=== PATIENT | male | born 1970 | race Caucasian/White ===

== ENCOUNTER 2021-01-26 11:35 | Observation (INO) ==
[2021-01-26] MEDS ORDERED: cefTRIAXone SODIUM 1,000 MG/50 ML BAG IV STA (12:46)
[2021-01-26] MEDS ORDERED: SODIUM CHLORIDE 0.9% 1000ML 1,000 ML IV STA (12:46)
[2021-01-26] MEDS ORDERED: VANCOMYCIN HCL 1,750 MG in SODIUM CHLORIDE 0.9% 500 ML IV ONE (12:46)
[2021-01-26] MEDS ORDERED: VANCOMYCIN CONSULT ACTIVE PRN (12:46)
--- NOTE | 2021-01-26 12:55 | Emergency Department Note ---
Impression & Plan Cellulitis, Laceration of knee, left ED Provider Note EmergencyNAME: NICK FRENCH AGE: 50 SEX: M : 1970 ARRIVES VIA: Walk-In INFORMANT: Patient, ED PROVIDER(S): Akira Jeff DO CHIEF COMPLAINT: Infection HPI: The patient is a 50-year-old male who presented to the emergency department for an evaluation of an infection in his left knee. The patient suffered an injury while he was in a competitive race. The [facility] was [facility]. The patient states that he tripped while running to a [place] and suffered a laceration just below his kneecap. He did come back to our area and was treated. He received sutures and also was placed on Cipro, Augmentin, and Bactrim. He has been compliant with all the antibiotics. He started having pain and swelling over the last 48 hours. He went to see his family doctor today and was referred to the emergency department for infection. The patient states initially there was no significant erythema but now the knee is swollen and also he has been noticing erythema going up the thigh. He notices no fevers. He does have pain with ambulation. The patient denies having any nausea or vomiting. He denies having any other symptoms. Pain is worsened with ambulation as well as bending the knee. ROS: See above HPI for pertinent positives & negatives. A total of 10 systems reviewed and were otherwise negative. PAST MEDICAL HISTORY: GENERAL: Patient is awake alert in no acute distress patient is resting comfortably and showing no signs of anxiety EYES: The conjunctivae are clear. The pupils are round and reactive. EARS, NOSE, MOUTH AND THROAT: The nose is without any evidence of any deformity. Mucous membranes are moist. Tongue is midline. NECK: The neck is nontender and supple. RESPIRATORY: Normal respiratory effort is noted there is no evidence of wheezing rhonchi or rales CARDIOVASCULAR: Regular rate and rhythm noted there no murmurs rubs or gallops normal S1 normal S2. GASTROINTESTINAL: The abdomen is soft. Abdomen is nontender. MUSCULOSKELETAL/EXTREMITIES: There is an effusion as well as erythema overlying the anterior left knee. There is a laceration with sutures in place. There is no dehiscence or drainage. There is significant erythema overlying the knee. The erythema extends into the medial left thigh. There is no posterior tenderness. SKIN: There is no significant pedal edema. NEUROLOGIC: Patient is awake alert and oriented x3. PAST SURGICAL HISTORY: See Below FAMILY HISTORY: See Below SOCIAL HISTORY: See Below HOME MEDICATIONS: See Below ALLERGIES: See Below VITALS: See Below PHYSICAL EXAMINATION: MEDICAL DECISION MAKING: The patient is a 50-year-old male who presented to the emergency department for an evaluation of left knee pain. The patient was seen in our facility recently for a contaminated knee laceration. Today because of significant swelling and erythema around the laceration. I was concerned this could have extended into the joint. Radiographic and laboratory studies were obtained. The patient was treated further with IV antibiotics. The patient was on 3 different broad- spectrum antibiotics as an outpatient. Given his worsening of symptoms I do feel the patient may require inpatient management. I discussed the patient's condition with him. I also [facility] have agreed to evaluate the patient in the emergency department for further management and disposition. He was also found to have a small tear of his meniscus. He was made aware of this. Triage Nursing notes reviewed. Prior medical records reviewed Vital Signs: reviewed and remarkable for no significant abnormalities Differential diagnosis: Cellulitis, abscess, MRSA infection, DVT, necrotizing fasciitis, dermatitis, drug eruption, allergic reaction, as well as other pathologies. ER treatment provided: See below Diagnostics interpreted by me: ECG: none Laboratory studies: As stated above and show below. Imaging studies: See below Consultation(s): I discussed this case with Joie who [facility] They will evaluate the patient in the emergency department. Past Med/Surg History Medical History History of drainage of abscess History of MRSA infection No significant past medical history Surgical History H/O inguinal hernia repair History of tonsillectomy and adenoidectomy Family History Other Cancer Coronary heart disease Hypertension Stroke Social History Smoking Status: Never smoker Second Hand Exposure: Yes; Do You Dip or Chew Tobacco: No; Hx Alcohol Use: No Hx Substance Use: No Preferred Language: Swiss Communication Ability: Effective Punchboard Assembler Required: No Beliefs That Will Affect Care: None marital status: Current Living Situation: Spouse current occupational status: employed Other Information That Helps Us Care for You: No Feels Safe at Home: Yes Safety Concerns: Feels Safe At This Time Assistive Devices: Glasses Allergies Allergies Allergy/AdvReac Type Severity Reaction Status Date / Time No Known Allergies Allergy Unknown Verified 01/26/21 14:51 Home Meds Home Medications Medication Instructions Recorded Confirmed acetaminophen 325 mg tablet 650 mg PO QID PRN 01/26/21 01/26/21 (Tylenol) ibuprofen 200 mg tablet 400 mg PO Q6H PRN 01/26/21 01/26/21 Previous Rx's Medication Instructions Recorded amoxicillin 875 mg-potassium 1 tab PO BID #14 tab 01/22/21 clavulanate 125 mg tablet (Augmentin) ciprofloxacin HCl 500 mg tablet 500 mg PO BID #14 tab 01/22/21 (Cipro) sulfamethoxazole 800 160 mg PO Q12H #14 tab 01/22/21 mg-trimethoprim 160 mg tablet (Bactrim DS) Results & Data (ED) Vital Signs Vital Signs - 24 hr 01/26/21 11:40 01/26/21 15:00 01/26/21 17:21 Temperature 36.6 C Temperature Source Temporal Artery Scan Pulse Rate 76 Pulse Rate [Apical] 78 65 Respiratory Rate 18 20 18 Respiratory Effort / Characteristics Non-Labored Spontaneous Respiratory Depth Normal Respiratory Pattern Regular Blood Pressure 149/94 H Blood Pressure [Left Arm] 147/75 H 141/80 H Blood Pressure Mean 112 Blood Pressure Mean [Left Arm] 99 100 Blood Pressure Position Sitting Pulse Oximetry 96 98 96 Oxygen Delivery Method Room Air Room Air Room Air Sepsis Recent Fever Within 48 Hours No Sepsis New/Unexplained Change in Mental Status N/A Sepsis Action Taken by Nursing No Action Required Home Medications Current Medication List: was personally reviewed by me Laboratory Data Attestation: I reviewed the patient's lab results. Result diagrams: 01/27/21 08:25 01/27/21 08:25 Lab Results 01/26/21 01/26/21 01/26/21 Range/Units 12:49 12:49 12:49 WBC 7.70 (4.8-10.8) K/uL RBC 5.09 (4.7-6.1) M/uL Hgb 16.8 (14.0-18.0) g/dL Hct 47.4 (42-52) % MCV 93.1 (80-100) fL MCH 33.0 (25-34) pg MCHC 35.4 (32-36) g/dL RDW Std Deviation 41.9 (36.4-46.3) fL RDW Coeff of Phan 12.1 (11.5-14.5) % Plt Count 170 (130-400) K/uL MPV 9.5 (7.4-10.4) fL Immature Gran % (Auto) 0.1 % Neut % (Auto) 78.3 % Lymph % (Auto) 16.4 % Hodgeman % (Auto) 3.4 % Eos % (Auto) 1.4 % Baso % (Auto) 0.4 % Neut # (Auto) 6.03 (1.4-6.5) K/uL Lymph # (Auto) 1.26 (1.2-3.4) K/uL Hodgeman # (Auto) 0.26 (0.11-0.59) K/uL Eos # (Auto) 0.11 (0-0.5) K/uL Baso # (Auto) 0.03 (0-0.2) K/uL Immature Gran # (Auto) 0.01 (0.00-0.02) K/uL ESR (0-20) mm/hr Sodium 136 (136-145) mmol/L Potassium 4.0 (3.5-5.1) mmol/L Chloride 104 (98-107) mmol/L Carbon Dioxide 27 (21-32) mmol/L Anion Gap 5.0 (3-11) BUN 11 (7-18) mg/dl Creatinine 1.09 (0.6-1.4) mg/dl Est Cr Clr Drug Dosing 89.6 ml/min Est GFR ( Amer) 90.0 ml/min Est GFR (Non-Af Amer) 77.6 ml/min BUN/Creatinine Ratio 10.5 (10-20) Glucose 102 H (70-99) mg/dl Calcium 9.6 (8.5-10.1) mg/dl Total Bilirubin 0.6 (0.2-1) mg/dl AST 15 (15-37) U/L ALT 25 (12-78) U/L Alkaline Phosphatase 87 (45-117) U/L C-Reactive Protein 0.67 H (0-0.29) mg/dl Total Protein 8.5 H (6.4-8.2) gm/dl Albumin 4.4 (3.4-5.0) gm/dl Globulin 4.1 H (2.5-4.0) gm/dl Albumin/Globulin Ratio 1.1 (0.9-2) Procalcitonin (0-0.5) ng/ml COVID-19 Eval Order SARS-CoV-2 (PCR) (Negative) 01/26/21 01/26/21 01/26/21 Range/Units 12:49 12:49 17:22 WBC (4.8-10.8) K/uL RBC (4.7-6.1) M/uL Hgb (14.0-18.0) g/dL Hct (42-52) % MCV (80-100) fL MCH (25-34) pg MCHC (32-36) g/dL RDW Std Deviation (36.4-46.3) fL RDW Coeff of Phan (11.5-14.5) % Plt Count (130-400) K/uL MPV (7.4-10.4) fL Immature Gran % (Auto) % Neut % (Auto) % Lymph % (Auto) % Hodgeman % (Auto) % Eos % (Auto) % Baso % (Auto) % Neut # (Auto) (1.4-6.5) K/uL Lymph # (Auto) (1.2-3.4) K/uL Hodgeman # (Auto) (0.11-0.59) K/uL Eos # (Auto) (0-0.5) K/uL Baso # (Auto) (0-0.2) K/uL Immature Gran # (Auto) (0.00-0.02) K/uL ESR 18 (0-20) mm/hr Sodium (136-145) mmol/L Potassium (3.5-5.1) mmol/L Chloride (98-107) mmol/L Carbon Dioxide (21-32) mmol/L Anion Gap (3-11) BUN (7-18) mg/dl Creatinine (0.6-1.4) mg/dl Est Cr Clr Drug Dosing ml/min Est GFR ( Amer) ml/min Est GFR (Non-Af Amer) ml/min BUN/Creatinine Ratio (10-20) Glucose (70-99) mg/dl Calcium (8.5-10.1) mg/dl Total Bilirubin (0.2-1) mg/dl AST (15-37) U/L ALT (12-78) U/L Alkaline Phosphatase (45-117) U/L C-Reactive Protein (0-0.29) mg/dl Total Protein (6.4-8.2) gm/dl Albumin (3.4-5.0) gm/dl Globulin (2.5-4.0) gm/dl Albumin/Globulin Ratio (0.9-2) Procalcitonin < 0.05 (0-0.5) ng/ml COVID-19 Eval Order Covid19 at [facility] SARS-CoV-2 (PCR) (Negative) 01/26/21 Range/Units 17:22 WBC (4.8-10.8) K/uL RBC (4.7-6.1) M/uL Hgb (14.0-18.0) g/dL Hct (42-52) % MCV (80-100) fL MCH (25-34) pg MCHC (32-36) g/dL RDW Std Deviation (36.4-46.3) fL RDW Coeff of Phan (11.5-14.5) % Plt Count (130-400) K/uL MPV (7.4-10.4) fL Immature Gran % (Auto) % Neut % (Auto) % Lymph % (Auto) % Hodgeman % (Auto) % Eos % (Auto) % Baso % (Auto) % Neut # (Auto) (1.4-6.5) K/uL Lymph # (Auto) (1.2-3.4) K/uL Hodgeman # (Auto) (0.11-0.59) K/uL Eos # (Auto) (0-0.5) K/uL Baso # (Auto) (0-0.2) K/uL Immature Gran # (Auto) (0.00-0.02) K/uL ESR (0-20) mm/hr Sodium (136-145) mmol/L Potassium (3.5-5.1) mmol/L Chloride (98-107) mmol/L Carbon Dioxide (21-32) mmol/L Anion Gap (3-11) BUN (7-18) mg/dl Creatinine (0.6-1.4) mg/dl Est Cr Clr Drug Dosing ml/min Est GFR ( Amer) ml/min Est GFR (Non-Af Amer) ml/min BUN/Creatinine Ratio (10-20) Glucose (70-99) mg/dl Calcium (8.5-10.1) mg/dl Total Bilirubin (0.2-1) mg/dl AST (15-37) U/L ALT (12-78) U/L Alkaline Phosphatase (45-117) U/L C-Reactive Protein (0-0.29) mg/dl Total Protein (6.4-8.2) gm/dl Albumin (3.4-5.0) gm/dl Globulin (2.5-4.0) gm/dl Albumin/Globulin Ratio (0.9-2) Procalcitonin (0-0.5) ng/ml COVID-19 Eval Order SARS-CoV-2 (PCR) NEGATIVE (Negative) Administered Medications Acetaminophen (Acetaminophen 325 Mg Tab) 650 mg PO Q4H PRN PRN Reason: Pain or Fever Stop: 02/25/21 20:55 Last Admin: 01/27/21 06:08 Dose: 650 mg Documented by: [id number] Admin: 01/26/21 23:05 Dose: 650 mg Documented by: [id number] Vancomycin HCl 1,000 mg/ (Sodium Chloride) 270 mls @ 200 mls/hr IV Q8H EMILIE Stop: 02/02/21 21:59 Last Infusion: 01/27/21 05:45 Dose: 0 mls/hr Documented by: [id number] Admin: 01/27/21 04:48 Dose: 200 mls/hr Documented by: [id number] Infusion: 01/27/21 00:34 Dose: 0 mls/hr Documented by: [id number] Admin: 01/26/21 23:05 Dose: 200 mls/hr Documented by: [id number] Piperacillin Sod/Tazobactam (Sod 3.375 gm/ Dextrose) 115 mls @ 28.75 mls/hr IV Q8H EMILIE; Protocol Stop: 02/03/21 03:59 Last Infusion: 01/27/21 09:19 Dose: 0 mls/hr Documented by: [id number] Infusion: 01/27/21 05:46 Dose: 28.8 mls/hr Documented by: [id number] Infusion: 01/27/21 04:50 Dose: 0 mls/hr Documented by: [id number] Admin: 01/27/21 04:48 Dose: 28.8 mls/hr Documented by: [id number] Discontinued Medications Gadobutrol (Gadobutrol 65ml Vial) 9 ml IV ONCE ONE Stop: 01/26/21 16:24 Last Admin: 01/26/21 16:24 Dose: 9 ml Documented by: [id number] Sodium Chloride (Nss 1000ml) 1,000 mls @ 125 mls/hr IV .Q8H STA Stop: 01/26/21 20:45 Last Infusion: 01/26/21 22:02 Dose: 0 mls/hr Documented by: [id number] Admin: 01/26/21 13:01 Dose: 125 mls/hr Documented by: [id number] Ceftriaxone Sodium (Rocephin) 1,000 mg in 50 mls @ 100 mls/hr IV NOW STA Stop: 01/26/21 13:15 Last Infusion: 01/26/21 16:35 Dose: 0 mls/hr Documented by: [id number] Admin: 01/26/21 13:03 Dose: 100 mls/hr Documented by: [id number] Vancomycin HCl 1,750 mg/ (Sodium Chloride) 535 mls @ 200 mls/hr IV NOW ONE Stop: 01/26/21 15:26 Last Infusion: 01/26/21 16:35 Dose: 0 mls/hr Documented by: [id number] Admin: 01/26/21 13:25 Dose: 200 mls/hr Documented by: [id number] Sodium Chloride (Nss 1000ml) 1,000 mls @ 125 mls/hr IV .Q8H EMILIE Stop: 01/27/21 04:55 Last Infusion: 01/27/21 05:50 Dose: 0 mls/hr Documented by: [id number] Infusion: 01/27/21 04:50 Dose: 0 mls/hr Documented by: [id number] Admin: 01/26/21 21:53 Dose: 125 mls/hr Documented by: [id number] Piperacillin Sod/Tazobactam (Sod 3.375 gm/ Dextrose) 115 mls @ 230 mls/hr IV NOW ONE; Protocol Stop: 01/26/21 21:59 Last Infusion: 01/26/21 22:30 Dose: 0 mls/hr Documented by: [id number] Admin: 01/26/21 21:53 Dose: 230 mls/hr Documented by: [id number] Miscellaneous Information (Consult Pharmacy) 1 ea N/A NOW STA Stop: 01/26/21 18:23 Last Admin: 01/26/21 21:53 Dose: Not Given Documented by: [id number] Imaging Data Radiologist's Impression: Knee MRI 01/26/21 12:46 MR knee LT wo/w con CLINICAL HISTORY: infection COMPARISON STUDY: TECHNIQUE: MRI of the left knee was performed utilizing proton density T1, and T2 weighted sequences in the axial, sagittal, and coronal planes FINDINGS: Menisci: Lateral meniscus is intact. Mild increase in intrasubstance signal within posterior medial meniscus with extension to the meniscal surface likely representing meniscal tear.. Anterior medial meniscus is intact. Ligaments: The anterior and posterior cruciate ligaments are intact. The medial and lateral collateral ligaments are normal in appearance. Extensor mechanism: The extensor mechanism is intact. Hoffa's fat pad is normal in appearance. Articular cartilage and bone: The articular cartilage is intact, and no bone marrow edema is seen. There is 1.8 x 0.6 cm elongated fluid signal lesion within distal femoral metaphysis which might represent cyst. Few sclerotic lesions are seen within lateral femoral condyle. Joint effusion: Minimal knee joint and suprapatellar effusion. Soft tissues: Diffuse edema of soft tissue overlying anterior aspect of the knee. No evidence of abnormal enhancement to suggest osteomyelitis. IMPRESSION: 1. Tear of the posterior medial meniscus. 2. No evidence of abnormal enhancement to suggest osteomyelitis. 3. No significant bone marrow edema is seen. 4. Soft tissue edema overlying the anterior compartment of the knee is seen. 5. The rest of findings as above. ACT 112: Negative or not required by law. The above report was generated using voice recognition software. It may contain grammatical, syntax or spelling errors. Electronically signed by: Cheri Najera DO 01/26/2021 5:05 PM Discharge Plan Visit Data Chief Complaint: Infection Stated Complaint: LEFT KNEE INFECTION ED Provider: Akira Jeff Discharge Problem: Cellulitis, Laceration of knee, left Patient Disposition: Admitted As Inpatient Discharge Instructions Interventions: ED Discharge Assessment Last Done: 01/26/21 19:49 Discharge Problem: Cellulitis Qualifiers: Site of cellulitis: extremity Site of cellulitis of extremity: lower extremity Laterality: left Qualified Code(s): L03.116 - Cellulitis of left lower limb Laceration of knee, left Qualifiers: Encounter type: initial encounter Qualified Code(s): S81.012A - Laceration without foreign body, left knee, initial encounter
[2021-01-26 13:07] LABS: Basophils # (auto) 0.03 K/uL (0-0.2); Basophils % (auto) 0.4 %; Eosinophils # (auto) 0.11 K/uL (0-0.5); Eosinophils % (auto) 1.4 %; Hematocrit (blood only) 47.4 % (42-52); Hemoglobin 16.8 g/dL (14.0-18.0); Immature Granulocytes # (auto) 0.01 K/uL (0.00-0.02); Immature Granulocytes % (auto) 0.1 %; Lymphocytes # (auto) 1.26 K/uL (1.2-3.4); Lymphocytes % (auto) 16.4 %; Mean Corpuscular Hgb Conc 35.4 g/dL (32-36); Mean Corpuscular Volume 93.1 fL (80-100); Mean Platelet Volume 9.5 fL (7.4-10.4); Monocytes # (auto) 0.26 K/uL (0.11-0.59); Monocytes % (auto) 3.4 %; Neutrophils # (auto) 6.03 K/uL (1.4-6.5); Neutrophils % (auto) 78.3 %; Platelet Count 170 K/uL (130-400); RDW Coefficient of Variation 12.1 % (11.5-14.5); RDW Standard Deviation 41.9 fL (36.4-46.3); Red Blood Count 5.09 M/uL (4.7-6.1)
[2021-01-26 13:27] LABS: Albumin Level 4.4 gm/dl (3.4-5.0); BUN Creatinine Ratio 10.5 (10-20); Calcium 9.6 mg/dl (8.5-10.1); Creatinine Clr Calc Pharmacy 89.6 ml/min; Est GFR (Non-African American) 77.6 ml/min
[2021-01-26 13:29] LABS: Albumin Globulin Ratio 1.1 (0.9-2); Bilirubin,Total 0.6 mg/dl (0.2-1); Globulin 4.1 gm/dl (2.5-4.0); Total Protein 8.5 gm/dl (6.4-8.2)
[2021-01-26] MEDS ORDERED: GADOBUTROL 65ML VIAL IV ONE (16:23)
--- NOTE | 2021-01-26 17:06 | Magnetic Resonance Report ---
MR knee LT wo/w con CLINICAL HISTORY: infection COMPARISON STUDY: TECHNIQUE: MRI of the left knee was performed utilizing proton density T1, and T2 weighted sequences in the axial, sagittal, and coronal planes FINDINGS: Menisci: Lateral meniscus is intact. Mild increase in intrasubstance signal within posterior medial m eniscus with extension to the meniscal surface likely representing meniscal tear.. Anterior medial me niscus is intact. Ligaments: The anterior and posterior cruciate ligaments are intact. The medial and lateral collatera l ligaments are normal in appearance. Extensor mechanism: The extensor mechanism is intact. Hoffa's fat pad is normal in appearance. Articular cartilage and bone: The articular cartilage is intact, and no bone marrow edema is seen. There is 1.8 x 0.6 cm elongated fluid signal lesion within distal femoral metaphysis which might repr esent cyst. Few sclerotic lesions are seen within lateral femoral condyle. Joint effusion: Minimal knee joint and suprapatellar effusion. Soft tissues: Diffuse edema of soft tissue overlying anterior aspect of the knee. No evidence of abn ormal enhancement to suggest osteomyelitis. IMPRESSION: 1. Tear of the posterior medial meniscus. 2. No evidence of abnormal enhancement to suggest osteomyelitis. 3. No significant bone marrow edema is seen. 4. Soft tissue edema overlying the anterior compartment of the knee is seen. 5. The rest of findings as above. ACT 112: Negative or not required by law. The above report was generated using voice recognition software. It may contain grammatical, syntax o r spelling errors. Electronically signed by: Cheri Najera DO 01/26/2021 5:05 PM
[2021-01-26] MEDS ORDERED: CONSULT PHARMACY STA (18:22)
--- NOTE | 2021-01-26 20:18 | History & Physical Report ---
Date of Service January 26, 2021 Assessment & Plan (1) Cellulitis of knee, left: (2) Laceration of knee, left: Plan: Pt is 50 y/o M with h/o MRSA presented to ER with c/o left knee redness x several days. On 01/22/21 laceration and repair and started on Augmentin, Cipro, & Bactrim. Denies fever/chills. In ER pt afebrile, vitals stable. No leukocytosis. Lactate WNL In ER given Rocephin, vancomycin. MRI knee: Tear of the posterior medial meniscus. No evidence of abnormal enhancement to suggest osteomyelitis. No significant bone marrow edema is seen. Soft tissue edema overlying the anterior compartment of the knee is seen. -Blood cultures pending -Zosyn, vancomycin -IVF -Ortho consult -CBC, BMP in a.m. DVT Prophylaxis -SCDs Full Code as per discussion with pt Follows with Dr Mitchell for routine care Pt was seen and care coordinated with Dr Cagle. See addendum History of Present Illness Chief Complaint: Left knee redness Primary Care Provider: Jennifer Mitchell, Pt is 50 y/o M with h/o MRSA presented to ER with c/o left knee redness. On 01/22/21 pt was running obstacle course when fell onto muddy stream onto left knee causing laceration. He reports area was cleansed and bandaged and then was seen at [facility] ER and had laceration sutured. He was placed on Augmentin, Cipro, & Bactrim. Over past couple of days developed edema and erythema to knee with edema extending up medial thigh. Denies discharge from area. Denies fever/chills, diaphoresis, N/V/D/C, PATE, dizziness, syncope, vision changes, neck pain, CP, SOB, orthopnea, palpitations, cough, sore throat, choking, otalgia, rhinorrhea, abdominal pain, paresthesias, weakness, extremity weakness, other extremity edema, rashes, urinary symptoms. In ER pt afebrile, vitals stable. Was given Rocephin, vancomycin. MRI knee: Tear of the posterior medial meniscus. No evidence of abnormal enhancement to suggest osteomyelitis. No significant bone marrow edema is seen. Soft tissue edema overlying the anterior compartment of the knee is seen. Patient being admitted for further evaluation and treatment Allergies Allergy/AdvReac Type Severity Reaction Status Date / Time No Known Allergies Allergy Unknown Verified 01/26/21 14:51 Home Medications Medication Instructions Recorded Confirmed Type amoxicillin 875 mg-potassium 1 tab PO BID #14 tab 01/22/21 01/26/21 Rx clavulanate 125 mg tablet (Augmentin) ciprofloxacin HCl 500 mg tablet 500 mg PO BID #14 tab 01/22/21 01/26/21 Rx (Cipro) sulfamethoxazole 800 160 mg PO Q12H #14 tab 01/22/21 01/26/21 Rx mg-trimethoprim 160 mg tablet (Bactrim DS) acetaminophen 325 mg tablet 650 mg PO QID PRN 01/26/21 01/26/21 History (Tylenol) ibuprofen 200 mg tablet 400 mg PO Q6H PRN 01/26/21 01/26/21 History Past Med/Surg History Medical History (Updated 01/26/21 @ 20:19 by Lawanda Marrero PA-C) History of drainage of abscess History of MRSA infection No significant past medical history Surgical History (Updated 01/26/21 @ 20:19 by Lawanda Marrero PA-C) H/O inguinal hernia repair History of tonsillectomy and adenoidectomy Family History (Updated 01/26/21 @ 20:14 by Lawanda Marrero PA-C) Other Cancer Coronary heart disease Hypertension Stroke Social History (Updated 01/26/21 @ 20:14 by Lawanda Marrero PA-C) Smoking Status: Never smoker Hx Alcohol Use: Yes Alcohol Intake Frequency: Monthly or Less Hx Substance Use: No Preferred Language: Syriac marital status: Current Living Situation: Spouse current occupational status: employed Feels Safe at Home: Yes Review of Systems Review of Systems: All systems reviewed & are unremarkable except as noted in HPI & below Physical Exam Physical Exam: General: no distress, WDWN Head: normocephalic, atraumatic Eyes: conjunctiva non-injected, anicteric ENT: normal inspection external ears, nose, mucous membranes moist Neck: supple, trachea midline Lungs: clear, no respiratory distress, no wheezing/rhonchi/rales CV: RRR, no murmur Abd: normal BS, soft, non-tender Ext: no cyanosis, no calf tenderness; LLE: anterior knee with laceration closed with 7 sutures without purulent drainage, no fluctuance palpated over laceration site. Anterior knee with edema, warmth, erythema. erythema extends proximal medial thigh and measures 30 cm in length. Area was marked with skin marker, distal pulses palpable. Limited flexion of left knee, patient has been using knee immobilizer Neuro: A&O x 3, no focal deficits noted, normal affect Skin: warm, dry, left lower extremity as above Results & Data Results & Data ([facility]) Vital Signs (Past 12 Hours) Vital Signs Temp Pulse Pulse Resp BP BP Pulse Ox 01/26/21 19:49 65 16 135/70 97 01/26/21 18:30 60 18 138/75 98 01/26/21 17:21 65 18 141/80 H 96 01/26/21 15:00 78 20 147/75 H 98 01/26/21 11:40 36.6 C 76 18 149/94 H 96 Laboratory Results Short CBC 01/26/21 Range/Units 12:49 WBC 7.70 (4.8-10.8) K/uL Hgb 16.8 (14.0-18.0) g/dL Hct 47.4 (42-52) % Plt Count 170 (130-400) K/uL BMP 01/26/21 12:49 Sodium 136 Potassium 4.0 Chloride 104 Carbon Dioxide 27 BUN 11 Creatinine 1.09 Glucose 102 H Calcium 9.6 Liver Function 01/26/21 Range/Units 12:49 Total Bilirubin 0.6 (0.2-1) mg/dl AST 15 (15-37) U/L ALT 25 (12-78) U/L Alkaline Phosphatase 87 (45-117) U/L Albumin 4.4 (3.4-5.0) gm/dl Diagnostic Findings Knee MRI 01/26/21 12:46 MR knee LT wo/w con CLINICAL HISTORY: infection COMPARISON STUDY: TECHNIQUE: MRI of the left knee was performed utilizing proton density T1, and T2 weighted sequences in the axial, sagittal, and coronal planes FINDINGS: Menisci: Lateral meniscus is intact. Mild increase in intrasubstance signal within posterior medial meniscus with extension to the meniscal surface likely representing meniscal tear.. Anterior medial meniscus is intact. Ligaments: The anterior and posterior cruciate ligaments are intact. The medial and lateral collateral ligaments are normal in appearance. Extensor mechanism: The extensor mechanism is intact. Hoffa's fat pad is normal in appearance. Articular cartilage and bone: The articular cartilage is intact, and no bone marrow edema is seen. There is 1.8 x 0.6 cm elongated fluid signal lesion within distal femoral metaphysis which might represent cyst. Few sclerotic lesions are seen within lateral femoral condyle. Joint effusion: Minimal knee joint and suprapatellar effusion. Soft tissues: Diffuse edema of soft tissue overlying anterior aspect of the knee. No evidence of abnormal enhancement to suggest osteomyelitis. IMPRESSION: 1. Tear of the posterior medial meniscus. 2. No evidence of abnormal enhancement to suggest osteomyelitis. 3. No significant bone marrow edema is seen. 4. Soft tissue edema overlying the anterior compartment of the knee is seen. 5. The rest of findings as above. ACT 112: Negative or not required by law. The above report was generated using voice recognition software. It may contain grammatical, syntax or spelling errors. Electronically signed by: Cheri Najera DO 01/26/2021 5:05 PM Code Status & VTE Plan VTE Prophylaxis Plan VTE Prophylaxis will be ordered: Yes Supervising Physician Co-Signing Physician Notes Patient is a 50-year-old male with history of MRSA and no other significant past medical history presents with history of left knee redness, swelling, tenderness after sustaining left knee laceration resulting in sutures 4 days ago secondary to a fall. Patient was prescribed multiple oral antibiotics which did not help. He denies any fever. He states having left knee discomfort with ambulation, weightbearing. He denies any chest pain, shortness of breath, dizziness. Please review HPI for complete details of presentation. MRI of the knee suggestive of posterior medial meniscal tear. No signs of osteomyelitis noted. Blood work within normal limits. On exam patient is well-built and nourished, no apparent distress, normocephalic atraumatic, lungs are clear to auscultation, normal breath sounds, S1-S2, no murmur, no pedal edema, abdomen soft, nontender, normal bowel sounds, left knee+ sutures, erythema extending up to mid thigh, mild tenderness on palpation, minimal swelling noted. Alert, awake, oriented, grossly no focal deficits. Patient is admitted for management of left knee cellulitis, meniscal tear. Agree with starting broad-spectrum antibiotics IV, vancomycin, Zosyn. Blood cultures obtained. Will consult orthopedics for input on meniscal tear and possible rule out knee infection. I personally reviewed the record. Patient is interviewed and examined at bedside. Patient's care is coordinated with Lawanda Marrero PA-C. Please refer to the documentation above for details of patient's presentation and for discussion of other issues. (1) Laceration of knee, left Encounter type: initial encounter Qualified Code(s): S81.012A - Laceration without foreign body, left knee, initial encounter
[2021-01-26] MEDS ORDERED: PIPERACILL/TAZOBAC CONSULT ACTIVE PRN (20:56)
[2021-01-26] MEDS ORDERED: SODIUM CHLORIDE 0.9% 1000ML 1,000 ML IV SCH (20:56)
[2021-01-26] MEDS ORDERED: ONDANSETRON INJ 2 MG/ML 2 ML VIAL IV PRN (20:56)
[2021-01-26] MEDS ORDERED: POLYETHYLENE (MIRALAX) 17 GM PACK PO PRN (20:56)
[2021-01-26] MEDS ORDERED: PIPERACILLIN/TAZOBACTAM 3.375 GM in DEXTROSE 5% 100 ML IV ONE (21:30)
[2021-01-26] MEDS: ACETAMINOPHEN 325 MG TAB PO PRN (23:05)
[2021-01-26] MEDS: VANCOMYCIN HCL 1,000 MG in SODIUM CHLORIDE 0.9% 250 ML IV SCH (23:05)
[2021-01-27] MEDS: PIPERACILLIN/TAZOBACTAM 3.375 GM in DEXTROSE 5% 100 ML IV SCH ×3 (04:48→21:00)
[2021-01-27] MEDS: VANCOMYCIN HCL 1,000 MG in SODIUM CHLORIDE 0.9% 250 ML IV SCH ×3 (04:48→21:00)
[2021-01-27] MEDS ORDERED: VANCOMYCIN TROUGH ONE (05:30)
[2021-01-27] MEDS: ACETAMINOPHEN 325 MG TAB PO PRN ×4 (06:08→22:02)
[2021-01-27 08:46] LABS: Hematocrit (blood only) 45.1 % (42-52); Hemoglobin 15.5 g/dL (14.0-18.0); Mean Corpuscular Hemoglobin 32.4 pg (25-34); Mean Corpuscular Hgb Conc 34.4 g/dL (32-36); Mean Corpuscular Volume 94.2 fL (80-100); Mean Platelet Volume 9.4 fL (7.4-10.4); Platelet Count 140 K/uL (130-400); RDW Standard Deviation 41.6 fL (36.4-46.3); Red Blood Count 4.79 M/uL (4.7-6.1); White Blood Count 5.48 K/uL (4.8-10.8)
[2021-01-27 09:15] LABS: BUN Creatinine Ratio 11.1 (10-20); Calcium 8.8 mg/dl (8.5-10.1); Creatinine Clr Calc Pharmacy 101.7 ml/min; Est GFR (African American) 104.9 ml/min; Est GFR (Non-African American) 90.5 ml/min; Potassium 4.4 mmol/L (3.5-5.1)
--- NOTE | 2021-01-27 11:03 | Orthopedic Consultation ---
Date of Consultation January 27, 2021 Assessment & Plan (1) Cellulitis of knee, left: X-rays reviewed with Dr. Jacobs. Patient also examined by Dr. Jacobs. At this point, patient has a general cellulitis secondary to his laceration. No areas identified that would need drained. No surgery needed at this time. Continue current IV antibiotics. Patient may be weightbearing as tolerated on the left lower extremity. Would continue immobilizer for another short period of time when ambulating and then begin gentle range of motion over the next several days. Thank you for this consult. History of Present Illness Reason for Consultation: Left knee cellulitis Attending Physician: Sincere Cagle MD History of Present Illness Patient is a 50-year-old white male who was running an outdoor [employer] obstacle course on 01/22/2021. At 1 point during the race, he ended up falling into a stream bed that was exceedingly muddy. He ended up getting a laceration on his knee. He was treated by the pbx operator at that time. He states the wound was cleansed and then dressed. He was sent to the emergency room where at that point he was seen and the wound was taken care of. It was sutured and he was placed on several antibiotics for possible wound infection coverage. Over the next several days, he began having some increased erythema around the incision that slowly spread up and down the leg. Went and saw one of his practitioners who directed him to the emergency room. [facility]. We have been consulted to see him for his knee cellulitis. Currently the patient states that he is feeling better. He is noted that the erythema has gotten better along with less swelling. He denies any severe pain at this time. He denies any previous chills, fevers, nausea or vomiting prior to being admitted. Allergies Allergy/AdvReac Type Severity Reaction Status Date / Time No Known Allergies Allergy Unknown Verified 01/26/21 14:51 Home Medications Medication Instructions Recorded Confirmed Type amoxicillin 875 mg-potassium 1 tab PO BID #14 tab 01/22/21 01/26/21 Rx clavulanate 125 mg tablet (Augmentin) ciprofloxacin HCl 500 mg tablet 500 mg PO BID #14 tab 01/22/21 01/26/21 Rx (Cipro) sulfamethoxazole 800 160 mg PO Q12H #14 tab 01/22/21 01/26/21 Rx mg-trimethoprim 160 mg tablet (Bactrim DS) acetaminophen 325 mg tablet 650 mg PO QID PRN 01/26/21 01/26/21 History (Tylenol) ibuprofen 200 mg tablet 400 mg PO Q6H PRN 01/26/21 01/26/21 History Patient History Medical History History of drainage of abscess History of MRSA infection No significant past medical history Surgical History H/O inguinal hernia repair History of tonsillectomy and adenoidectomy Family History Other Cancer Coronary heart disease Hypertension Stroke Social History Smoking Status: Never smoker Second Hand Exposure: Yes; Do You Dip or Chew Tobacco: No; Hx Alcohol Use: No Hx Substance Use: No Preferred Language: Faroese Communication Ability: Effective Underwriting Clerk Required: No Beliefs That Will Affect Care: None marital status: Current Living Situation: Spouse current occupational status: employed Other Information That Helps Us Care for You: No Feels Safe at Home: Yes Safety Concerns: Feels Safe At This Time Assistive Devices: Glasses Review of Systems Review of Systems: All systems reviewed & are unremarkable except as noted in HPI & below Physical Exam Physical Exam: Patient is a well-developed, well-nourished. white male; alert and oriented x3; no acute distress, pleasant and cooperative. On examination of his left lower extremity, he has a large area that had a border drawn around the leg where his erythema had extended proximally and distally. There is a well approximated wound with sutures over the patella. Erythema still exist over the patellar area but he has noticeable resolution of his erythema that had traveled proximally and distally. He initially was told to limit his range of motion secondary to his left knee incision to help it heal. He has no overt drainage coming from the wound itself. I cannot appreciate any palpable fluid collections in the prepatellar bursa or around the patella itself. He has one area that is tender over the medial aspect of the patella/medial retinaculum. Palpation of the skin itself does not cause him any discomfort. I can take him through gentle range of motion of the left knee from 0 degrees extension to about 30 degrees of flexion until he starts having pain and pulling on his incision. Calves are soft nontender. He has no pain posteriorly of the thigh. Even the areas that have a little bit of a residual erythema left on the distal thigh where erythema had been marked is nontender. There is no gross motor or sensory loss seen at this time. Results & Data ([facility]) Vital Signs (Past 12 Hours) Vital Signs Temp Pulse Resp BP Pulse Ox 01/27/21 07:16 36.6 C 62 16 115/71 97 Laboratory Results Laboratory Results WBC 5.48 K/uL (4.8-10.8) 01/27/21 08:25 RBC 4.79 M/uL (4.7-6.1) 01/27/21 08:25 Hgb 15.5 g/dL (14.0-18.0) 01/27/21 08:25 Hct 45.1 % (42-52) 01/27/21 08:25 MCV 94.2 fL (80-100) 01/27/21 08:25 MCH 32.4 pg (25-34) 01/27/21 08:25 MCHC 34.4 g/dL (32-36) 01/27/21 08:25 RDW Std Deviation 41.6 fL (36.4-46.3) 01/27/21 08:25 RDW Coeff of Phan 12.0 % (11.5-14.5) 01/27/21 08:25 Plt Count 140 K/uL (130-400) 01/27/21 08:25 MPV 9.4 fL (7.4-10.4) 01/27/21 08:25 Immature Gran % (Auto) 0.1 % 01/26/21 12:49 Neut % (Auto) 78.3 % 01/26/21 12:49 Lymph % (Auto) 16.4 % 01/26/21 12:49 Surry % (Auto) 3.4 % 01/26/21 12:49 Eos % (Auto) 1.4 % 01/26/21 12:49 Baso % (Auto) 0.4 % 01/26/21 12:49 Neut # (Auto) 6.03 K/uL (1.4-6.5) 01/26/21 12:49 Lymph # (Auto) 1.26 K/uL (1.2-3.4) 01/26/21 12:49 Surry # (Auto) 0.26 K/uL (0.11-0.59) 01/26/21 12:49 Eos # (Auto) 0.11 K/uL (0-0.5) 01/26/21 12:49 Baso # (Auto) 0.03 K/uL (0-0.2) 01/26/21 12:49 Immature Gran # (Auto) 0.01 K/uL (0.00-0.02) 01/26/21 12:49 ESR 18 mm/hr (0-20) 01/26/21 12:49 Sodium 139 mmol/L (136-145) 01/27/21 08:25 Potassium 4.4 mmol/L (3.5-5.1) 01/27/21 08:25 Chloride 110 mmol/L (98-107) H 01/27/21 08:25 Carbon Dioxide 28 mmol/L (21-32) 01/27/21 08:25 Anion Gap 2.0 (3-11) L 01/27/21 08:25 BUN 11 mg/dl (7-18) 01/27/21 08:25 Creatinine 0.96 mg/dl (0.6-1.4) 01/27/21 08:25 Est Cr Clr Drug Dosing 101.7 ml/min 01/27/21 08:25 Est GFR ( Amer) 104.9 ml/min 01/27/21 08:25 Est GFR (Non-Af Amer) 90.5 ml/min 01/27/21 08:25 BUN/Creatinine Ratio 11.1 (10-20) 01/27/21 08:25 Glucose 101 mg/dl (70-99) H 01/27/21 08:25 Lactate 0.9 mmol/L (0.4-2.0) 01/26/21 18:19 Calcium 8.8 mg/dl (8.5-10.1) 01/27/21 08:25 Total Bilirubin 0.6 mg/dl (0.2-1) 01/26/21 12:49 AST 15 U/L (15-37) 01/26/21 12:49 ALT 25 U/L (12-78) 01/26/21 12:49 Alkaline Phosphatase 87 U/L (45-117) 01/26/21 12:49 C-Reactive Protein 0.67 mg/dl (0-0.29) H 01/26/21 12:49 Total Protein 8.5 gm/dl (6.4-8.2) H 01/26/21 12:49 Albumin 4.4 gm/dl (3.4-5.0) 01/26/21 12:49 Globulin 4.1 gm/dl (2.5-4.0) H 01/26/21 12:49 Albumin/Globulin Ratio 1.1 (0.9-2) 01/26/21 12:49 Procalcitonin < 0.05 ng/ml (0-0.5) 01/26/21 12:49 COVID-19 Eval Order Covid19 at [facility] 01/26/21 17:22 SARS-CoV-2 (PCR) NEGATIVE (Negative) 01/26/21 17:22 Impressions Knee MRI 01/26/21 12:46 MR knee LT wo/w con CLINICAL HISTORY: infection COMPARISON STUDY: TECHNIQUE: MRI of the left knee was performed utilizing proton density T1, and T2 weighted sequences in the axial, sagittal, and coronal planes FINDINGS: Menisci: Lateral meniscus is intact. Mild increase in intrasubstance signal within posterior medial meniscus with extension to the meniscal surface likely representing meniscal tear.. Anterior medial meniscus is intact. Ligaments: The anterior and posterior cruciate ligaments are intact. The medial and lateral collateral ligaments are normal in appearance. Extensor mechanism: The extensor mechanism is intact. Hoffa's fat pad is normal in appearance. Articular cartilage and bone: The articular cartilage is intact, and no bone marrow edema is seen. There is 1.8 x 0.6 cm elongated fluid signal lesion within distal femoral metaphysis which might represent cyst. Few sclerotic lesions are seen within lateral femoral condyle. Joint effusion: Minimal knee joint and suprapatellar effusion. Soft tissues: Diffuse edema of soft tissue overlying anterior aspect of the knee. No evidence of abnormal enhancement to suggest osteomyelitis. IMPRESSION: 1. Tear of the posterior medial meniscus. 2. No evidence of abnormal enhancement to suggest osteomyelitis. 3. No significant bone marrow edema is seen. 4. Soft tissue edema overlying the anterior compartment of the knee is seen. 5. The rest of findings as above. ACT 112: Negative or not required by law. The above report was generated using voice recognition software. It may contain grammatical, syntax or spelling errors. Electronically signed by: Cheri Najera DO 01/26/2021 5:05 PM
--- NOTE | 2021-01-27 11:11 | Pharmacy Report ---
Pharmacy Abx Dose Short Note - Date of Service January 27, 2021 - Assessment & Plan Assessment 50 year old M receiving empiric vancomycin + zosyn for cellulitis of left knee * pt presented to the ED on 01/22/21 for laceration of left knee. He was discharged on Augmentin, Cipro, & Bactrim. * he returned yesterday with complaints of left knee redness * h/o of MRSA per patient Plan Vancomycin * Loading dose: 1750 mg IV given in ED * Maintenance dose: 1000 mg (11.3 mg/kg) IV every 8 hours - dosing per AUC nomogram * Goal trough level: ~15 mcg/mL * Trough level ordered for: 01/28 @ 0530 Zosyn * continue 3.375g IV every 8 hours (extended infusion) Pharmacy will continue to follow and will adjust dose/frequency as necessary. Thank you.
--- NOTE | 2021-01-27 17:11 | Hospitalist Progress Note ---
Date of Service January 27, 2021 Assessment & Plan (1) Cellulitis of knee, left: (2) Laceration of knee, left: Plan: Patient is a 50 yr male with H/O MRSA presented to ER with c/o left knee redness x several days. On 01/22/21 laceration and repair and started on Augmentin, Cipro, & Bactrim. Denies fever/chills. Left Leg Cellulitis-POA Left knee laceration S/O Sutures Left posterior medial meniscus Secondary to Fall -Knee MRI:Tear of the posterior medial meniscus. No evidence of abnormal enhancement to suggest osteomyelitis. No significant bone marrow edema is seen. Soft tissue edema overlying the anterior compartment of the knee is seen. -Failed outpatient PO antibiotic therapy Continue Zosyn, vancomycin Day #2 Blood cultures: Negative to date Pain control Appreciate Orthopedics Input weightbearing as tolerated on the left lower extremity Knee immobilizer for support as per Ortho DVT Px: SCDs Lovenox SQ Code Status Full Code Admission and Anticipated Discharge Date Admission Date: January 27, 2021 Subjective Patient is seen and examined at bedside Doing better today Left knee pain, erythema improving Denies chest pain, shortness of breath, dizziness, nausea, abdominal pain Offers no other complaints Review of Systems Review of Systems: All systems reviewed & are unremarkable except as noted in Subjective Physical Exam Physical Exam: Physical Exam: Vitals signs as noted above General Appearance:Moderately built and nourished, no apparent distress Head: normocephalic, Atraumatic Eyes: normal inspection, EOMI Neck: supple, Trachea midline Respiratory/Chest: Normal breath sounds, CTA Cardiovascular: S1, S2, No murmur Abdomen/GI:Soft, Non tender, Bowel sounds present Extremities/Musculoskeletal:normal inspection, no edema, Left knee +sutures, mild erythema, minimal tenderness Neurologic/Psych:AAOX3, grossly no focal neurological deficits Skin: normal color, warm Results & Data Results & Data ([facility]) Vital Signs (Past 12 Hours) Vital Signs Temp Pulse Resp BP BP Pulse Ox 01/27/21 15:01 36.6 C 58 L 16 125/71 95 01/27/21 07:16 36.6 C 62 16 115/71 97 Laboratory Results Short CBC 01/27/21 Range/Units 08:25 WBC 5.48 (4.8-10.8) K/uL Hgb 15.5 (14.0-18.0) g/dL Hct 45.1 (42-52) % Plt Count 140 (130-400) K/uL BMP 01/27/21 08:25 Sodium 139 Potassium 4.4 Chloride 110 H Carbon Dioxide 28 BUN 11 Creatinine 0.96 Glucose 101 H Calcium 8.8 (1) Laceration of knee, left Encounter type: initial encounter Qualified Code(s): S81.012A - Laceration without foreign body, left knee, initial encounter
[2021-01-28] MEDS: PIPERACILLIN/TAZOBACTAM 3.375 GM in DEXTROSE 5% 100 ML IV SCH ×3 (03:50→19:11)
[2021-01-28] MEDS ORDERED: VANCOMYCIN TROUGH ONE (05:30)
[2021-01-28 07:02] LABS: Creatinine Clr Calc Pharmacy 100.7 ml/min; Est GFR (African American) 103.6 ml/min; Est GFR (Non-African American) 89.4 ml/min
[2021-01-28] MEDS: ENOXAPARIN INJ 40 MG/0.4 ML SYR SQ SCH (07:11)
[2021-01-28] MEDS: VANCOMYCIN HCL 1,000 MG in SODIUM CHLORIDE 0.9% 250 ML IV SCH ×3 (08:10→23:09)
--- NOTE | 2021-01-28 11:15 | Pharmacy Report ---
Pharmacy Vanc AUC Short Note - Date of Service January 28, 2021 - Assessment & Plan Assessment 50 year old M receiving empiric vancomycin + zosyn for cellulitis of left knee * pt presented to the ED on 01/22/21 for laceration of left knee. He was discharged on Augmentin, Cipro, & Bactrim. * he returned 01/26 with complaints of left knee redness * h/o of MRSA per patient * ortho consulted and recommended conservative management with IV abx Plan Vancomycin * AUC/AUBREY is the preferred PK/PD target for vancomycin * AUC guided dosing is effective and associated with decreased risk of nephrotoxicity compared to traditional trough targets * Trough level of 9.6 mcg/mL is predicted to achieve target AUC/AUBREY of 400-600 mg/L.hr and may be associated with a 8 % risk of nephrotoxicity * Continue dose of 1000 mg IV every 8 hours * Repeat trough level on 01/29 Zosyn * continue 3.375g IV every 8 hours (extended infusion) Pharmacy will continue to follow and will adjust dose/frequency as necessary. Thank you.
--- NOTE | 2021-01-28 14:26 | Orthopedic Progress Note ---
Date of Service January 28, 2021 Assessment & Plan (1) Cellulitis of knee, left: Plan: Significant improvement with IV antibiotic therapy. He may progress to weightbearing as tolerated left lower extremity. Continue with bracing over the next couple days. We discussed the sutures remaining in place for another 6 to 7 days before removal. Orthopedics to sign off at this time. He may follow-up with us on an as-needed basis. He may follow-up with his primary care provider for suture removal next week. Admission and Anticipated Discharge Date Admission Date: January 27, 2021 Subjective States has been doing well. Definite improvement with IV antibiotics. The redness is decreased significantly. He still has some pain just above his pa tella and the laceration. Physical Exam Constitutional: WD/WN, vitals as above no acute distress Musculoskeletal: Knee: + skin erythema (Minimal anterior left knee) and + joint line tenderness (Left: Proximal to transverse laceration); no effusion and no ecchymosis Skin: + wound (Transverse laceration at left patella-well approximated and sutured.) Neurologic: normal touch/pain/proprioception Psychiatric: A+Ox3, euthymic affect Speech: normal rate/rhythm/volume of speech Results & Data ([facility]) Vital Signs (Past 12 Hours) Vital Signs Temp Pulse Resp BP Pulse Ox 01/28/21 08:30 36.5 C 82 16 106/70 93
[2021-01-28] MEDS: ACETAMINOPHEN 325 MG TAB PO PRN ×2 (15:24→21:54)
[2021-01-28] MEDS: LACTOBACILLUS ACIDOPHILUS 1 GM PACK PO SCH (16:47)
--- NOTE | 2021-01-28 16:50 | Hospitalist Progress Note ---
Date of Service January 28, 2021 Assessment & Plan (1) Cellulitis of knee, left: (2) Laceration of knee, left: Plan: Patient is a 50 yr male with H/O MRSA presented to ER with c/o left knee redness x several days. On 01/22/21 laceration and repair and started on Augmentin, Cipro, & Bactrim. Denies fever/chills. Left Leg Cellulitis-POA Left knee laceration S/O Sutures Left posterior medial meniscus Secondary to Fall -Knee MRI:Tear of the posterior medial meniscus. No evidence of abnormal enhancement to suggest osteomyelitis. No significant bone marrow edema is seen. Soft tissue edema overlying the anterior compartment of the knee is seen. -Failed outpatient PO antibiotic therapy Continue Zosyn, vancomycin Day #3 Blood cultures: Negative to date Pain control Appreciate Orthopedics Input weightbearing as tolerated on the left lower extremity Knee immobilizer for support as per Ortho Plan to transition to PO antibiotics as able DVT Px: SCDs Lovenox SQ Code Status Full Code Admission and Anticipated Discharge Date Admission Date: January 27, 2021 Subjective Patient is seen and examined at bedside Continues to improve Still has some Left knee pain, erythema Denies chest pain, shortness of breath, dizziness, nausea, abdominal pain Blood Cultures remain negative Review of Systems Review of Systems: All systems reviewed & are unremarkable except as noted in Subjective Physical Exam Physical Exam: Physical Exam: Vitals signs as noted above General Appearance:Moderately built and nourished, no apparent distress Head: normocephalic, Atraumatic Eyes: normal inspection, EOMI Neck: supple, Trachea midline Respiratory/Chest: Normal breath sounds, CTA Cardiovascular: S1, S2, No murmur Abdomen/GI:Soft, Non tender, Bowel sounds present Extremities/Musculoskeletal:normal inspection, no edema, Left knee +sutures, mild erythema, tenderness improving Neurologic/Psych:AAOX3, grossly no focal neurological deficits Skin: normal color, warm Results & Data Results & Data ([facility]) Vital Signs (Past 12 Hours) Vital Signs Temp Pulse Resp BP Pulse Ox 01/28/21 08:30 36.5 C 82 16 106/70 93 Laboratory Results BMP 01/28/21 05:37 Creatinine 0.97 (1) Laceration of knee, left Encounter type: initial encounter Qualified Code(s): S81.012A - Laceration without foreign body, left knee, initial encounter
[2021-01-29] MEDS: PIPERACILLIN/TAZOBACTAM 3.375 GM in DEXTROSE 5% 100 ML IV SCH (03:19)
[2021-01-29] MEDS: ENOXAPARIN INJ 40 MG/0.4 ML SYR SQ SCH (07:39)
[2021-01-29] MEDS: ACETAMINOPHEN 325 MG TAB PO PRN (07:39)
[2021-01-29] MEDS: LACTOBACILLUS ACIDOPHILUS 1 GM PACK PO SCH (07:40)
[2021-01-29 08:23] LABS: Creatinine Clr Calc Pharmacy 108.5 ml/min; Est GFR (African American) 113.4 ml/min; Est GFR (Non-African American) 97.9 ml/min
[2021-01-29] MEDS: VANCOMYCIN HCL 1,000 MG in SODIUM CHLORIDE 0.9% 250 ML IV SCH (10:01)
--- NOTE | 2021-01-29 13:09 | Hospitalist Progress Note ---
Date of Service January 29, 2021 Assessment & Plan (1) Cellulitis of knee, left: (2) Laceration of knee, left: Plan: Patient is a 50 yr male with H/O MRSA presented to ER with c/o left knee redness x several days. On 01/22/21 laceration and repair and started on Augmentin, Cipro, & Bactrim. Denies fever/chills. Left Leg Cellulitis-POA Left knee laceration S/O Sutures Left posterior medial meniscus Secondary to Fall -Knee MRI:Tear of the posterior medial meniscus. No evidence of abnormal enhancement to suggest osteomyelitis. No significant bone marrow edema is seen. Soft tissue edema overlying the anterior compartment of the knee is seen. -Failed outpatient PO antibiotic therapy Continue Zosyn, vancomycin Day #4 Blood cultures: Negative to date Pain control Appreciate Orthopedics Input weightbearing as tolerated on the left lower extremity Knee immobilizer for support as per Ortho Plan to discharge home oral antibiotics Diarrhea Secondary to antibiotics Stool for C diff is negative DVT Px: SCDs Lovenox SQ Code Status Full Code Admission and Anticipated Discharge Date Admission Date: January 27, 2021 Subjective Patient is seen and examined at bedside No new complaints Left knee pain, erythema much improved Denies chest pain, shortness of breath, dizziness, nausea, abdominal pain Review of Systems Review of Systems: All systems reviewed & are unremarkable except as noted in Subjective Physical Exam Physical Exam: Physical Exam: Vitals signs as noted above General Appearance:Moderately built and nourished, no apparent distress Head: normocephalic, Atraumatic Eyes: normal inspection, EOMI Neck: supple, Trachea midline Respiratory/Chest: Normal breath sounds, CTA Cardiovascular: S1, S2, No murmur Abdomen/GI:Soft, Non tender, Bowel sounds present Extremities/Musculoskeletal:normal inspection, no edema, Left knee +sutures, mild erythema, tenderness improved Neurologic/Psych:AAOX3, grossly no focal neurological deficits Skin: normal color, warm Results & Data Results & Data ([facility]) Vital Signs (Past 12 Hours) Vital Signs Temp Pulse Resp BP Pulse Ox 01/29/21 07:00 36.6 C 57 L 20 129/80 98 Laboratory Results BMP 01/29/21 07:32 Creatinine 0.90 (1) Laceration of knee, left Encounter type: initial encounter Qualified Code(s): S81.012A - Laceration without foreign body, left knee, initial encounter
--- NOTE | 2021-01-29 13:16 | Discharge Summary ---
Date of Service January 29, 2021 Admission HPI Per Admitting Provider Pt is 50 y/o M with h/o MRSA presented to ER with c/o left knee redness. On 01/22/21 pt was running obstacle course when fell onto muddy stream onto left knee causing laceration. He reports area was cleansed and bandaged and then was seen at [facility] ER and had laceration sutured. He was placed on Augmentin, Cipro, & Bactrim. Over past couple of days developed edema and erythema to knee with edema extending up medial thigh. Denies discharge from area. Denies fever/chills, diaphoresis, N/V/D/C, PATE, dizziness, syncope, vision changes, neck pain, CP, SOB, orthopnea, palpitations, cough, sore throat, choking, otalgia, rh inorrhea, abdominal pain, paresthesias, weakness, extremity weakness, other extremity edema, rashes, urinary symptoms. In ER pt afebrile, vitals stable. Was given Rocephin, vancomycin. MRI knee: Te ar of the posterior medial meniscus. No evidence of abnormal enhancement to suggest osteomyelitis. No significant bone marrow edema is seen. Soft tissue edema overlying the anterior compartment of the knee is seen. Patient being admitted for further evaluation and treatment Admission Exam Per Admitting Provider Physical Exam Physical Exam: General: no distress, WDWN Head: normocephalic, atraumatic Eyes: conjunctiva non-injected, anicteric ENT: normal inspection external ears, nose, mucous membranes moist Neck: supple, trachea midline Lungs: clear, no respiratory distress, no wheezing/rhonchi/rales CV: RRR, no murmur Abd: normal BS, soft, non-tender Ext: no cyanosis, no calf tenderness; LLE: anterior knee with laceration closed with 7 sutures without purulent drainage, no fluctuance palpated over laceration site. Anterior knee with edema, warmth, erythema. erythema extends proximal medial thigh and measures 30 cm in length. Area was marked with skin marker, distal pulses palpable. Limited flexion of left knee, patient has been using knee immobilizer Neuro: A&O x 3, no focal deficits noted, normal affect Skin: warm, dry, left lower extremity as above Principal Diagnosis Left Leg Cellulitis Discharge Data Allergies Allergy/AdvReac Type Severity Reaction Status Date / Time No Known Allergies Allergy Unknown Verified 01/26/21 14:51 Consultations 01/26/21 17:36 ED Decision to Admit Stat 01/26/21 18:24 Consult Orthopedic Surgery Routine Ordered Studies 01/26/21 12:46 MR knee LT wo/w con Stat Hospital Course (1) Cellulitis of knee, left: (2) Laceration of knee, left: Patient is a 50 yr male with H/O MRSA presented to ER with c/o left knee redness x several days. On 01/22/21 laceration and repair and started on Augmentin, Cipro, & Bactrim. Denies fever/chills. Left Leg Cellulitis-POA Left knee laceration S/O Sutures Left posterior medial meniscus Secondary to Fall -Knee MRI:Tear of the posterior medial meniscus. No evidence of abnormal enhance ment to suggest osteomyelitis. No significant bone marrow edema is seen. Soft tissue edema overlying the anterior compartment of the knee is seen. -Failed outpatient PO antibiotic therapy Continue Zosyn, vancomycin Day #4 Blood cultures: Negative to date Pain control Appreciate Orthopedics Input weightbearing as tolerated on the left lower extremity Knee immobilizer for support as per Ortho Plan to discharge home oral antibiotics Diarrhea Secondary to antibiotics Stool for C diff is negative DVT Px: SCDs Lovenox SQ Code Status Full Code Total Time Total Time Spent Total Time Spent (In Minutes): 42 minutes Discharge Plan Discharge Items Patient Disposition: Home - Self-Care Reason For Visit: KNEE CELLULTITIS Discharge Diagnosis: Left Leg Cellulitis Activity: Per Instructions section Exercise/Sports: Wait until after follow-up appointment Non-emergency contact: Primary Care Provider Call non-emergency contact if: you have any medication questions, your symptoms worsen, your pain is concerning for you, you have a fever, your wound has increased redness, your wound has increased drainage and your wound pain has increased Follow-up/Referrals: Jennifer Mitchell DO [Primary Care Provider] - (Date & Time 02/03/2021 1:40 PM Provider Farrah eRal MD Department Family Medicine [facility] ) Diet: Regular Addtl Attending Provider Instructions: Follow up with your Primary Care physician on 02/03/2021 1:40 PM Complete the antibiotic course as advised Seek immediate medical attention if your symptoms reoccur or worsen Please take all medications as instructed on discharge list below. Please call if you have any questions or problems. You can reach a [facility] hospitalist on duty at [facility] 24 hours a day by calling [phone] Pending Studies at Discharge: Yes Studies:: Blood Cultures Stand-Alone Forms: My [facility], Work/School Release, Smoking Cessation Medications and DC Order Prescriptions: New Floranex 100 million cell Granules In Packet 1 g PO TIDM Qty: 30 RF: 0 doxycycline hyclate 100 mg tablet 100 mg PO BID 10 Days Qty: 20 RF: 0 Continued amoxicillin-pot clavulanate [Augmentin] 875-125 mg tablet 1 tab PO BID Qty: 14 RF: 0 acetaminophen [Tylenol] 325 mg Tablet 650 mg PO QID PRN (Reason: Pain) RF: 0 ibuprofen 200 mg Tablet 400 mg PO Q6H PRN (Reason: fever/pain) RF: 0 Discontinued ciprofloxacin HCl [Cipro] 500 mg tablet 500 mg PO BID Qty: 14 RF: 0 sulfamethoxazole-trimethoprim [Bactrim DS] 800-160 mg tablet 160 mg PO Q12H Qty: 14 RF: 0 Discharge Orders: Discharge Order (Routine); Ordered 01/29/21 Ordered By: Sincere Cagle Admission Data Admit Date/Time: 01/27/21 12:39 Attending Provider: Sincere Cagle Admit Provider: Sincere Cagle Primary Care Provider: Jennifer Mitchell Other Providers: Mervin Bunch Satish K. Other Interventions: Discharge Summary Assessment (RN) Last Done: 01/29/21 13:19
== END 2021-01-29 13:56 | disposition home or self-care (01) ==
LOC: ED 11:35 → 3N 11:35
DX: Z86.14 Personal history of Methicillin resistant Staphylococcus aureus infection; Z20.822 Contact with and (suspected) exposure to COVID-19; W19.XXXA Unspecified fall, initial encounter; R19.7 Diarrhea, unspecified; T36.95XA Adverse effect of unspecified systemic antibiotic, initial encounter; S81.012A Laceration without foreign body, left knee, initial encounter; L03.116 Cellulitis of left lower limb